=== PATIENT | female | born 1970 | race Two or more races ===

== ENCOUNTER 2017-02-22 13:19 | Emergency (ER) | payer OTHER ==
[~2017-02-22] VITALS: Ht 165.1 cm; Wt 68.0 kg
--- NOTE | 2017-02-22 13:27 | NUR ---
[id number], CAME TO ER C/O LEFT SHOULDER PAIN RADIATES TO LEFT ARM AND TINGLING SENSATION TO LEFT HAND X 2 WEEKS. DENIES RECENT FALL OR INJURY. SKIN IS WARM AND NON DIAPHORETIC. AWAITING MD FOR EVAL. [facility].
[2017-02-22 14:27] VITALS: BP 116/88
== END 2017-02-22 14:29 | disposition home or self-care (01) ==
LOC: ER 13:21
DX: M25.512 Pain in left shoulder (principal); I10 Essential (primary) hypertension; F41.0 Panic disorder [episodic paroxysmal anxiety]
CPT/HCPCS: 93971; 99284; A4606; Z7610